=== PATIENT | male | born 1965 | race African-American/Black ===

== ENCOUNTER 2019-11-18 14:14 | Emergency (ER) | payer MEDICARE, MEDICAID ==
[~2019-11-18] VITALS: Ht 188 cm; Wt 106.6 kg
[2019-11-18] MEDS: HYDROmorphone HCL 2 MG/ML VL IV ONE (16:35)
[2019-11-18] MEDS: SODIUM CHLORIDE 0.9% 500 ML IV ONE (16:35)
[2019-11-18] MEDS: ONDANSETRON HCL 4 MG/2 ML VIAL IV ONE (16:35)
[2019-11-18 16:49] LABS: Basophils # (auto) 0 uL; Basophils % (auto) 0.3 % (0.0-2.0); Eosinophils # (auto) 0.1 uL; Eosinophils % (auto) 1.6 % (0.0-7.0); Hemoglobin 14.8 g/dL (13.5-17.5); Lymphocytes # (auto) 1.8 uL; Lymphocytes % (auto) 25.8 % (10.0-50.0); Mean Corpuscular Hemoglobin 29.4 pg (28.0-32.0); Mean Corpuscular Hgb Conc. 32.9 g/dL (32.0-36.0); Mean Corpuscular Volume 89.4 fL (80.0-100.0); Monocytes # (auto) 0.5 uL; Monocytes % (auto) 7.3 % (0.0-12.0); Neutrophils # (auto) 4.7 uL; Nucleated Red Blood Cells % 0.1 %; Platelet Count (auto) 233 10^3/uL (140-450); Red Blood Cells 5.04 10^6/uL (4.5-5.90); Red Cell Distribution Width 13.5 % (11.8-14.3); White Blood Cell 7.2 10^3/uL (4.4-10.8)
[2019-11-18 17:05] LABS: Albumin 4.2 g/dL (3.4-5.0); Anion Gap 8 (5-15); Blood Urea Nitrogen 20 mg/dL (7-18); Calcium 9.6 mg/dL (8.5-10.1); Carbon Dioxide 28 mmol/L (21-32); Chloride 100 mmol/L (98-107); Glucose 77 mg/dL (74-106); Magnesium 2.1 mg/dL (1.6-2.6); Potassium 3.5 mmol/L (3.5-5.1); Sodium 136 mmol/L (136-145)
[2019-11-18 17:07] LABS: Alanine Aminotransferase 17 U/L (16-61); Aspartate Aminotransferase 17 U/L (15-37); BUN/Creatinine Ratio 16.3; GFR African American 78 mL/min; GFR Non-African American 65 mL/min
[2019-11-18 17:12] LABS: Alkaline Phosphatase 83 U/L (45-117); Bilirubin, Total 0.6 mg/dL (0.2-1.0); Total Protein 8.6 g/dL (6.4-8.2)
[2019-11-18 18:35] VITALS: BP 156/92
== END 2019-11-18 18:55 | disposition home or self-care (01) ==
LOC: EDBD 14:14 → ER 14:20
DX: R55 Syncope and collapse (principal); R42 Dizziness and giddiness; R11.2 Nausea with vomiting, unspecified; I10 Essential (primary) hypertension
CPT/HCPCS: 36415; 80053; 83735; 84484; 85025; 93005; 96361; 96374; 96375; 99284; J1170; J2405; J7030

== ENCOUNTER 2020-09-08 13:02 | Emergency (ER) | payer MEDICARE, MEDICAID ==
[~2020-09-08] VITALS: Ht 188 cm; Wt 111.1 kg
[2020-09-08 13:14] VITALS: BP 149/84
[2020-09-08] MEDS ORDERED: clonazePAM 0.5 MG TAB PO ONE (16:15)
== END 2020-09-08 16:19 | disposition home or self-care (01) ==
LOC: ER 13:02
DX: R56.9 Unspecified convulsions (principal); Z76.0 Encounter for issue of repeat prescription; I10 Essential (primary) hypertension; F41.9 Anxiety disorder, unspecified; G89.29 Other chronic pain

== ENCOUNTER 2021-01-17 11:28 | Emergency (ER) | payer MEDICARE, MEDICAID ==
[~2021-01-17] VITALS: Ht 188 cm; Wt 106.6 kg
[2021-01-17 11:45] VITALS: BP 154/99
== END 2021-01-17 13:50 | disposition left against medical advice (07) ==
LOC: ER 11:28
DX: M54.9 Dorsalgia, unspecified (principal); Z53.21 Procedure and treatment not carried out due to patient leaving prior to being seen by health care provider